=== PATIENT | female | born 1990 | race Two or more races ===

== ENCOUNTER 2021-06-20 11:50 | Outpatient (CLI) | payer OTHER ==
[~2021-06-20] VITALS: Ht 172.7 cm; Wt 98.6 kg
[2021-06-20] VITALS (18 sets, daily range): BP systolic 113–152; BP diastolic 61–80
[2021-06-20] MEDS ORDERED: MULTTAB20 PO (12:10)
[2021-06-20] MEDS ORDERED: ACET325C5 PO (12:10)
[2021-06-20] MEDS ORDERED: HOME MED LIST COMPLETE! XX SCH (12:15)
[2021-06-20] MEDS ORDERED: FIORICET TAB PO ONE (12:40)
[2021-06-20] MEDS ORDERED: LR 1,000 ML IV ONE ×2 (12:45→15:25)
[2021-06-20 12:51] LABS: HEMATOCRIT 32.2 % (36.0-47.0); HEMOGLOBIN 10.6 g/dl (12.0-15.5); MEAN CORPUSCULAR HEMOGLOBIN 27.6 pg (27.0-33.0); MEAN CORPUSCULAR HGB CONC 32.9 g/dl (32.0-36.5); MEAN CORPUSCULAR VOLUME 83.9 fl (80.0-96.0); PLATELET COUNT, AUTOMATED 252 10^3/uL (150-450); RED BLOOD COUNT 3.84 10^6/uL (4.00-5.40); WHITE BLOOD COUNT 6.7 10^3/uL (4.0-10.0)
[2021-06-20 13:16] LABS: ALT/SGPT 20 U/L (12-78); BILIRUBIN,TOTAL 0.3 MG/DL (0.2-1.0); CREATININE FOR GFR 0.48 MG/DL (0.55-1.30); GLOMERULAR FILTRATION RATE > 60.0 (>60); LDH LACTATE DEHYDROGENASE 127 U/L (84-246)
[2021-06-20 13:38] LABS: TOTAL PROTEIN,RANDOM URINE 21.2 MG/DL (0.0-12.0)
[2021-06-20] MEDS ORDERED: diphenhydrAMINE 50MG/ML VIAL (J1200) IV ONE (15:25)
[2021-06-20] MEDS ORDERED: FIORICET TAB PO PRN (15:30)
[2021-06-20] MEDS: LR 1,000 ML IV SCH ×2 (16:27→22:46)
[2021-06-20] MEDS: FERROUS SULFATE 325MG TAB PO SCH (20:09)
[2021-06-20] MEDS: ASCORBIC ACID 500 MG TAB PO SCH (20:09)
[2021-06-20] MEDS: MAGNESIUM OXIDE 400MG TAB (MAG-OX) PO SCH (20:09)
[2021-06-21 03:21] VITALS: BP 128/60
[2021-06-21 07:49] VITALS: BP 112/57
[2021-06-21] MEDS: LR 1,000 ML IV SCH (07:56)
[2021-06-21] MEDS: MAGNESIUM OXIDE 400MG TAB (MAG-OX) PO SCH (08:49)
[2021-06-21] MEDS ORDERED: ASPIRIN 81MG ENTERIC TABLET PO SCH (09:00)
[2021-06-21] MEDS ORDERED: PRENATAL VITAMINS CHEWABLE TABLET PO SCH (09:00)
[2021-06-21 10:12] VITALS: BP 108/66
[2021-06-21] MEDS: FERROUS SULFATE 325MG TAB PO SCH (10:39)
[2021-06-21] MEDS: ASCORBIC ACID 500 MG TAB PO SCH (10:39)
[2021-06-21 10:55] VITALS: BP 102/57
== END 2021-06-21 11:15 | disposition home or self-care (01) ==
LOC: M LDO 11:50
PROVIDERS: ATTEND Registered Nurse Maternal Newborn
DX: O26.893 Other specified pregnancy related conditions, third trimester (principal); Z3A.33 33 weeks gestation of pregnancy; O41.03X0 Oligohydramnios, third trimester, not applicable or unspecified; O99.343 Other mental disorders complicating pregnancy, third trimester; F41.9 Anxiety disorder, unspecified; F32.9 Major depressive disorder, single episode, unspecified; O99.013 Anemia complicating pregnancy, third trimester; D64.9 Anemia, unspecified; O99.353 Diseases of the nervous system complicating pregnancy, third trimester; G43.119 Migraine with aura, intractable, without status migrainosus; O99.283 Endocrine, nutritional and metabolic diseases complicating pregnancy, third trimester; E28.2 Polycystic ovarian syndrome; Z91.410 Personal history of adult physical and sexual abuse; Z87.51 Personal history of pre-term labor; Z87.59 Personal history of other complications of pregnancy, childbirth and the puerperium
CPT/HCPCS: 36415; 59025; 76815; 76819; 76820; 82247; 82565; 82570; 83615; 84156; 84450; 84460; 84550; 85027; 96360; 96361; G0378; G0463; J1200

== ENCOUNTER 2021-06-30 15:19 | Inpatient (IN) | payer OTHER ==
[2021-06-30] VITALS (14 sets, daily range): BP systolic 134–175; BP diastolic 73–98
[~2021-06-30] VITALS: Ht 170.2 cm; Wt 100.6 kg
[~2021-06-30 15:19] MED LIST: ACET325C5 PO; MULTTAB20 PO
[2021-06-30] MEDS ORDERED: LR 1,000 ML IV ONE (15:25)
[2021-06-30] MEDS ORDERED: PROMETHAZINE INJ 25 MG/ML VIAL (J2550) IV ONE (15:25)
[2021-06-30] MEDS ORDERED: FIORICET TAB PO ONE (15:25)
[2021-06-30] MEDS ORDERED: ACET500P3 PO (16:01)
[2021-06-30 16:24] LABS: CREATININE,RANDOM URINE 26.3 MG/DL; TOTAL PROTEIN,RANDOM URINE 7.2 MG/DL (0.0-12.0)
--- NOTE | 2021-06-30 16:43 | REP ---
INDICATION: Headache, hx of oligo. Comparison study June 21, 2021. COMPARISON: June 21, 2021 TECHNIQUE: Limited transabdominal obstetric sonography. FINDINGS: Scanning through the gravid uterus demonstrates a viable single intrauterine gestation in a cephalic lie. heart rate is recorded at 147 beats per minute. Anterior grade 2 placenta is seen without evidence of previa. Amniotic fluid is subjectively low. HECTOR is low at 2.1 cm (7.9-24.9 cm). Biophysical profile score is 8 out of a possible 8. SD ratio in the umbilical cord artery by Doppler is normal at 2.24. Closed cervical length is 3.9 cm. Umbilical cord is seen at the level of the neck IMPRESSION: Limited Ob sonography. Biophysical profile score 8/8. SD ratio normal. Oligohydramnios. HECTOR 2.1 cm. Question nuchal cord. <Electronically signed by Doimnic Lyons > 06/30/21 0702
[2021-06-30 17:21] LABS: HEMATOCRIT 31.2 % (36.0-47.0); HEMOGLOBIN 10.3 g/dl (12.0-15.5); MEAN CORPUSCULAR HEMOGLOBIN 28.1 pg (27.0-33.0); PLATELET COUNT, AUTOMATED 245 10^3/uL (150-450); RED BLOOD COUNT 3.67 10^6/uL (4.00-5.40); WHITE BLOOD COUNT 7.7 10^3/uL (4.0-10.0)
[2021-06-30 17:39] LABS: ALT/SGPT 20 U/L (12-78); BILIRUBIN,TOTAL 0.2 MG/DL (0.2-1.0); CREATININE FOR GFR 0.52 MG/DL (0.55-1.30); GLOMERULAR FILTRATION RATE > 60.0 (>60); LDH LACTATE DEHYDROGENASE 146 U/L (84-246); URIC ACID 3.5 MG/DL (2.6-6.0)
[2021-06-30] MEDS: LR 1,000 ML IV SCH (17:48)
[2021-06-30 18:08] LABS: APPEARANCE, URINE CLEAR (CLEAR); BACTERIA, URINE AUTO NEGATIVE (NEGATIVE); BILIRUBIN, URINE AUTO NEGATIVE (NEGATIVE); BLOOD, URINE BLOOD NEGATIVE (NEGATIVE); COLOR, URINE STRAW (YELLOW); GLUCOSE, URINE (UA) AUTO NEGATIVE (NEGATIVE); KETONE, URINE AUTO NEGATIVE (NEGATIVE); LEUKOCYTE ESTERASE, URINE AUTO NEGATIVE (NEGATIVE); NITRITE, URINE AUTO NEGATIVE (NEGATIVE); PROTEIN, URINE AUTO NEGATIVE (NEGATIVE); RBC, URINE AUTO 0 /HPF (0-3); SPECIFIC GRAVITY URINE AUTO 1.008 (1.002-1.035); SQUAMOUS EPITHELIAL CELL UR AU 1 /HPF (0-6); UROBILINOGEN, URINE AUTO 0.2 mg/dL (0.0-2.0); WBC, URINE AUTO 0 /HPF (0-3)
[2021-06-30] MEDS: BETAMETHASONE SOLUSPAN 6MG/ML 5ML VIAL (J0702 PER 3MG) IM SCH (19:04)
[2021-07-01] VITALS (26 sets, daily range): BP systolic 126–166; BP diastolic 60–89
--- NOTE | 2021-07-01 02:31 | HPEPDOC ---
Obstetrical History & Physical General Date of Admission Bad table Item Value Date Time Creatinine 0.52 MG/DL L 06/30/21 1654 Glomerular Filtration Rate > 60.0 06/30/21 1654 Uric Acid 3.5 MG/DL 06/30/21 1654 Total Bilirubin 0.2 MG/DL 06/30/21 1654 Aspartate Amino Transf (AST/SGOT) 13 U/L 06/30/21 1654 Alanine Aminotransferase (ALT/SGPT) 20 U/L 06/30/21 1654 Lactate Dehydrogenase 146 U/L 06/30/21 1654 Item Value Date Time White Blood Count 7.7 10^3/uL 06/30/21 1654 Red Blood Count 3.67 10^6/uL L 06/30/21 1654 Hemoglobin 10.3 g/dl L 06/30/21 1654 Hematocrit 31.2 % L 06/30/21 1654 Mean Corpuscular Volume 85.0 fl 06/30/21 1654 Mean Corpuscular Hemoglobin 28.1 pg 06/30/21 1654 Mean Corpuscular Hemoglobin Concent 33.0 g/dl 06/30/21 1654 Red Cell Distribution Width 14.6 % H 06/30/21 1654 Platelet Count 245 10^3/uL 06/30/21 1654 Nucleated Red Blood Cells % (auto) 0.0 % 06/30/214 Jun 30, 2021 at 18:29 NAME: OSVALDO WILLS DATE OF : 1990 AGE: 31 SEX: F REPORT #: [id number] ROOM: [facility] TECHNOLOGIST: EUGENIO DOCTOR: ARMANDO SOL CNM Ordered for Date&Time: 06/30/21 1525 cc: [~ rep ct ivnm] Service Date&Time: 06/30/21 1625 EXAMINATION REQUESTED: BPP W/O NON STRESS TEST REASON FOR PATIENT VISIT: ELEVATED BP REASON FOR EXAM/COMMENT: Headache, hx of oligo INDICATION: Headache, hx of oligo. Comparison study June 21, 2021. COMPARISON: June 21, 2021 TECHNIQUE: Limited transabdominal obstetric sonography. FINDINGS: Scanning through the gravid uterus demonstrates a viable single intrauterine gestation in a cephalic lie. heart rate is recorded at 147 beats per minute. Anterior grade 2 placenta is seen without evidence of previa. Amniotic fluid is subjectively low. HECTOR is low at 2.1 cm (7.9-24.9 cm). Biophysical profile score is 8 out of a possible 8. SD ratio in the umbilical cord artery by Doppler is normal at 2.24. Closed cervical length is 3.9 cm. Umbilical cord is seen at the level of the neck IMPRESSION: Limited Ob sonography. Biophysical profile score 8/8. SD ratio normal. Oligohydramnios. HECTOR 2.1 cm. Question nuchal cord. <Electronically signed by Dominic Lyons > 06/30/21 1639 DD: Arsen Lyons MD 06/30/21 1633 DT: GENA 06/30/21 163 DS: VANNESA 06/30/21163206/30/21 163 [~ rep ct labl] Primary Care Physician: Dante Sam MD History of Present Illness 31 YO A1 LMP 10/03/2020 BY US 7 WEEKS O DAYS SEEN TODAY BECAUSE OF HEADACHE AND ELEVATED BLOOD PRESSURE. WAS SEEN AND ADMITTED 1 WEEK BEFORE FOR SIMILAR ISSUES WORKED UP FOR PRE E NEGATIVE HEADACHE RESOLVED WITH HYDRATION AND MEDICATION. PATIENT HAD OLIGOHYDRAMNIOS HECTOR 3.4 CM 24 HOURS LATER HECTOR 8.6 CM PATIENT DISCHARGED TODAY SIMILAR COMPLAINTS SIMILAR WORK UP OLIGOHYDRAMNIOS 2.1 CM NEGATIVE PRE E AT 35.2 WEEKS. BOTH TIMES EXAMINATION CONFIRMED NEGATIVE LOSS OF FLUID Chief Complaint: Other (HEADACHE AND ELEVATED BLOOD PRESSURE ) Information Provided By: Patient Age: 31 : 4 Term: 0 Pre-term: 2 Abortions: 1 Livin Care Care: Good Care Number of Visits: 3 Dating Final EDC: Aug 03, 2021 Final EDC for Daily Update: Aug 03, 2021 Final EDC by: 1st trimester (US) (12/15/2020) LMP: Oct 05, 2020 1st Trimester Date: Dec 15, 2020 Weeks + Days: 7.0 Estimated Date of Confinement: Aug 03, 2021 EGA at Admission: 35.2 Antepartum Course Diagnos(e)s OLIGOHYDRAMNIOS AT 35.2 WEEKS Height (inches): 68 Pre- weight (lbs.): 184 Admission Weight (lbs.): 217 Change in Weight (lbs.): 33 Past Medical History Past Obstetrical History #1: Past Obstetrical History: Multigravida Date of Delivery: Jul 02, 2007 Gestation: 35 Type of Delivery: Spontaneous Vaginal Del. Sex of Infant: Male Weight of Infant (grams): 2267.96 Complications: Yes (IUFD AT 3 MONTHS ) Past Obstetrical History #2: Past Obstetrical History: Multigravida Date of Delivery: Apr 12, 2018 Gestation: 32 Type of Delivery: Spontaneous Vaginal Del. Sex of : Female Weight of Infant (grams): 1360.77 Complications: Yes (IOL PRE E PPH ) Past Obstetrical History #3: Past Obstetrical History: Multigravida Date of Delivery: Apr 20, 2020 Complications: Yes (SPON AB 8 WEEKS) EXCHANGE SPECIALIST History: Spontaneous (2019 8 WEEKS ) Past Medical History Medical History MIGRAINES WITH AURA Surgical History: Gallbladder (MOTHER HYPERTENSION) Family History Significant Family History: Hypertension Social History Marital Status: Family situation: Spouse/partner home Psychosocial History: No pertinent psych hx * Smoker: non-smoker Alcohol: Denies Drugs: denies Abuse Violence Screening Have you been hit/kicked/slapp: No Have you been sexually assault: No Imunizations Tdap status: current Influenza Status: current Allergies Coded Allergies: No Known Allergies (Unverified , 06/20/21) Medications Scheduled Acetaminophen (Tylenol Extra Strength) 500 Mg Powd.pack, 1,000 MG PO PRN No122/Iron/Folic Acid ( Multi Tablet) 1 Each Tablet, 1 TAB PO DAILY Physical Examination Physical Examination GENERAL: Alert and oriented times three. BREAST: . ABDOMEN: Gravid and non-tender to touch. FETUS: Is vertex (VTX) by sterile vaginal examination (SVE), fetus is vertex (VTX) by Jose. HEART RATE: Regular rate and rhythm. LUNGS: Clear to auscultation (CTA). EXTREMITIES: No edema. No clonus. Deep tendon reflexes (DTRs) + . Other physical findings NORMOCHEPHALIC ATRAUMATIC PEERLA. NECK FULL RANGE MOTION. CHEST CLEAT TO BASES NO WHEEZE NO SOB HEART SOUNDS NORMAL NO MURMUR NO CLICK RUB. ABDOMEN SOFT APPROPRIATE SF HEIGHT BOWEL SOUNDS NORMAL VERTEX CATAGORY 1 STRIP. NO RASHES LESIONS PURITIS NO ARTHRALGIA NO MYALGIA NO JOINT PAIN. NO URGENCY FREQUENCY NO N/V/D/C/F Vital Signs/I&O Vital Signs Date Time Temp Pulse Resp B/P (MAP) Pulse Ox O2 Delivery O2 Flow Rate FiO2 07/01/21 00:52 98.2 59 18 133/68 (89) 06/30/21 17:19 100 Room Air Laboratory Data 24H LABS Laboratory Tests 2 06/30/21 15:44: Urine Color STRAW, Urine Appearance CLEAR, Urine pH 7.0, Urine Specific [place] 1.008, Urine Protein NEGATIVE, Urine Glucose (Auto)(UA) NEGATIVE, Urine Ketones (Auto) NEGATIVE, Urine Blood NEGATIVE, Urine Nitrite NEGATIVE, Urine Bilirubin NEGATIVE, Urine Urobilinogen 0.2, Urine Leukocyte Esterase (Auto) NEGATIVE, Urine WBC (Auto) 0, Urine RBC (Auto) 0, Urine Hyaline Casts (Auto) 0, Urine Bacteria (Auto) NEGATIVE, Urine Squamous Epithelial Cells 1, Urine Sperm (Auto) 06/30/21 15:45: Urine Random Creatinine 26.3, Urine Random Total Protein 7.2 06/30/21 16:54: Nucleated Red Blood Cells % (auto) 0.0, Glomerular Filtration Rate > 60.0, Uric Acid 3.5, Total Bilirubin 0.2, Aspartate Amino Transf (AST/SGOT) 13, Alanine Aminotransferase (ALT/SGPT) 20, Lactate Dehydrogenase 146 06/30/21 19:07: Serology Scanned Report Hepatitis B Testing CBC/BMP Laboratory Tests 06/30/21 16:54 Pertinent Laboratoy Data Blood Type: A+ RBC Antibody Screen: Negative HIV: Negative Hepatitis B: Negative Rapid Plasma Reagin: Nonreactive Rubella: Immune Chlamydia/Gonorrhea: Negative Group B Streptococcus: Unknown Cystic Fibrosis: Negative Anatomy Ultrasound Ultrasound Date: March 06, 2001 Placenta Location: Anterior Normal Anatomy: Yes Placenta Previa: No Other Ultrasounds Information US SUGGESTS RIGHT OVARIAN DERMOID Steroid Therapy Steroid Therapy: Yes Date #1: Jun 30, 2021 Date #2: Jul 01, 2021 Reason ANTICIPATE PRE TERM DELIVERY Vaginal Examination Dilation: 1cm Effacement: 40% Station: -3 Cervical Consistency: Medium Cervical Position: Posterior Presentation: Cephalic presentation Assessment Variability: Moderate Accelerations: Present Decelerations: None Tocometer Contractions: No Assessment/Plan Assessment 31 year-old (G)4 para (P) 2 at 35.2 weeks by 7 -week ultrasound. Presents to Labor and Delivery (L&D) .EVALUATION FOR PRE E OLIGOHYDRAMNIOS Plan Admit and orient. Silk Snapper and consent. Diet: VALERI Group B Streptococcus (GBS) UNKNOWN Labs and intravenous (IV) per unit protocol. Counseled on Pitocin and induction of labor (IOL). Lactated Ringers (LR): Bolus 1000 mL, then at 125 mL/hr. REPEAT US RE HECTOR 24 HOURS Anticipate [normal spontaneous delivery ()]. POSSIBLE IOL C-S as appropriate. Labor and Delivery Counseling REVIEWED PLAN OF CARE WITH PATIENT SINCE SECOND ADMISSION FOR HEADACHE AND OLIGOHYDRAMNIOS WITH TRANSIENT ELEVATED BLOOD PRESSURE PLAN IS TO WORK UP PRE E BPP HYDRATE STEROIDS REPEAT US IN AM WHEN STEROID COMPLETE POSSIBLE IOL PERINATES NOTIFIED TOTAL FACE TO FACE 1 HOUR Dante Sam MD Jul 01, 2021 02:25
[2021-07-01] MEDS: LR 1,000 ML IV SCH ×2 (05:03→13:50)
[2021-07-01] MEDS: BETAMETHASONE SOLUSPAN 6MG/ML 5ML VIAL (J0702 PER 3MG) IM SCH (07:07)
--- NOTE | 2021-07-01 08:45 | REP ---
INDICATION: oligo, patient rehydrate. COMPARISON: 06/30/2021. TECHNIQUE: Real-time sonographic evaluation of gravid uterus performed. FINDINGS: There is a single living intrauterine gestation with estimated gestational age reportedly 35 weeks 2 days, EDC 08/03/2021. position cephalic. Placenta anterior and grade 2 with no previa. heart rate 136 beats per minute. There is oligohydramnios. HECTOR 3.4, normal range 7.8-24.9. SD ratio umbilical artery 2.57, normal range 1.67-3.57. RI 0.61, normal range 0.46-0.72. Cervix is closed with no funneling, the length is 3.1 cm. IMPRESSION: Oligohydramnios. <Electronically signed by Hiram Mc > 07/01/21 0842
[2021-07-01] MEDS ORDERED: TRANEXAMIC ACID INJection 1,000 MG in NS 100 ML IV PRN (09:05)
[2021-07-01] MEDS ORDERED: LIDOCAINE 1% MDV 20ML VIAL INFIL PRN (09:05)
[2021-07-01] MEDS ORDERED: OXYTOCIN DRIP 30 UNITS in IV 1 EA IV PRN ×4 (09:05)
[2021-07-01] MEDS ORDERED: OXYTOCIN INJ 10 UNITS/ML VIAL (J2590) IM PRN (09:05)
[2021-07-01] MEDS ORDERED: CARBOPROST TROMETHAMINE 250 MCG/ML AMP IM PRN (09:05)
[2021-07-01] MEDS ORDERED: METHYLERGONOVINE MALEATE 0.2 MG/ML VIAL (J2210) IM PRN (09:05)
[2021-07-01] MEDS ORDERED: FIORICET TAB PO ONE ×2 (09:20→18:15)
--- NOTE | 2021-07-01 09:58 | IPNPDOC ---
Text Note Date of Service The patient was seen on 07/01/21. NOTE Ingrid Vargas is a 31yo at 35+3 presented [id number] for elevated blood pressure, oligohydramnios. Her preeclampsia workup has been negative so far. Headache yesterday was relieved by one dose of Fioricet. She had an ultrasound yesterday revealing HECTOR of 2.1 and BPP 8/8. Repeat HECTOR this morning was 3.4. Of note, her obstetrical history: she has one vaginal at 35 weeks where the at 3 months of life. She has a [id number] that was born at 32 weeks due to preeclampsia with severe features and is doing well. She received 2 doses of betamethasone, the first at 1900 on 10SEP and then received a second dose at 0700 this morning. She was seen in her room. She feels well overall but does complain of 4-5 headache described as her usual morning headache. Denies visual symptoms, shortness of breath, abdominal/right upper quadrant pain, vaginal bleeding, loss of fluid, contractions. Endorses positive movement. MedHx: migraines with aura SurgHx: cholecystectomy Vitals: bp 143/79, P 63, R 18, T 97.7 Gen: nad, a&o x3 Resp: nonlabored breathing Abd: gravid, nontender, nondistended Ext: bilateral patellar reflexes 2+ monitoring category I. Labs: 10SEP CBC 7.3>10.3/31.2<245 10SEP Cr 0.52 10SEP AST/ALT 13/20 10SEP LDH 146 10SEP Pr/Cr 0.27 Rads: 10SEP radiology ultrasound: 2.1 HECTOR, 8/8 BPP 10SEP radiology ultrasound: 3.4 HECTOR A/P: as above with preeclampsia and oligohydramnios. Per ACOG, delivery for oligohydramnios (isolated,uncomplicated) is recommended at 36+0 to 37+6; for preeclampsia without severe features it is 37+0. Her diagnosis of preeclampsia is based on the documented severe range pressures yesterday which have resolved and were not greater than 4 hours apart. I talked with the patient regarding induction of labor today and the risks/benefits regarding pending development of preeclampsia vs. risks of maturity. Her first dose of betamethasone was 1900 10SEP. Maximal benefit of steroids is 2-7 days after the initial dose. Based on this, the category I tracing and the benign maternal exam the joint decision was made to induce labor once steroid complete if maternal/ status is reassuring. I would aim for 12SEP induction at this time. The plan for today is observation for development of severe features. Fioricet given for headache, will monitor for resolution. Plan for IOL when steroid complete. Yareli Go DO VS,Angie, I+O VS, Angie, I+O Laboratory Tests 06/30/21 16:54 Vital Signs Date Time Temp Pulse Resp B/P (MAP) Pulse Ox O2 Delivery O2 Flow Rate FiO2 07/01/21 07:02 97.7 63 18 143/79 (100) 06/30/21 17:19 100 Room Air YARELI GO DO Jul 01, 2021 09:24
[2021-07-01] MEDS ORDERED: PROCHLORPERAZINE 5 MG TAB (S0183) PO ONE (20:00)
[2021-07-01] MEDS ORDERED: diphenhydrAMINE 25MG CAP PO ONE (20:00)
[2021-07-01] MEDS ORDERED: miSOPROStol 25MCG 1/4 TABLET PO ONE ×2 (20:10→23:05)
[2021-07-01] MEDS ORDERED: CALCIUM GLUCONATE 1,000 MG in D5W MINI-BAG PLUS 100 ML IV PRN (20:15)
[2021-07-01] MEDS ORDERED: MAG Sulf (L&D) 4 GM/100 ML 4 GM in IV 1 EA IV ONE (20:15)
--- NOTE | 2021-07-01 20:37 | IPNPDOC ---
Text Note Date of Service The patient was seen on 07/01/21. NOTE On evening rounds she complained of 8/10 headache, was given 1 tab fioricet which did not improve the headache. I asked if this headache resembled her migraines and she said it felt different, and endorsed seeing sparkles in her vision. She denies shortness of breath, abdominal pain. I talked with her and the sparkles in the vision qualify for preeclampsia with severe features which is an indication for induction at this gestational age. We discussed r/b/a to induction and she is in agreement with induction. A cervical exam was performed and the cervix was closed long high. I discussed magnesium therapy for seizure prevention and she is in agreement. We will try compazine and benadryl for the headache and will start the induction with 25mcg cytotec by mouth. The plan is to recheck cervix in 4-6 hours or as needed and proceed with induction. Continuous monitoring and monitor for signs/symptoms of preeclampsia and magnesium toxicity. L&D consent We will deliver your baby through the vagina with possible assistance of forceps or vacuum device if needed for maternal or indications. Forceps and vacuum are devices that can assist with vaginal delivery when normal pushing efforts cannot achieve delivery on their own or when delivery is needed in an emergency for baby's well-being. Medications may be required to induce or augment (help) your labor in order to achieve a vaginal delivery. An episiotomy may be required to help your baby to delivery vaginally. You may also require repair of any lacerations or tears of your vagina or vulva that are caused by delivery. In some cases, emergencies can occur that require an emergency section delivery so quickly that there may not be enough time to stop and complete cons ent forms for section. Understand that if this occurs, your providers will discuss the need for a section with you before they proceed with surgery. section is the delivery of your baby through an incision in your abdomen. In some situations, section may be safer to mom and baby than continuing labor and is only performed when clinically indicated. Risks of vaginal delivery include but are not limited to: Bleeding, infection, injury to the vagina, pelvic structures, injury to baby, damage to the uterus, reactions to anesthesia, uterine rupture, risk of hysterectomy for life threatening bleeding, or . Medications used to induce or augment labor may increase your risk for infection, uterine tachysystole, uterine rupture, heart rate abnormalities, need for emergency delivery or possible hysterectomy, and hemorrhage. Additional risks for use of forceps and vacuum include: increased risk of perineal and vaginal lacerations, risk of urinary or bowel incontinence, increased risk of injury to baby with bruising, scratches, hematomas on the head, or intracranial bleeding. Yareli Go DO VS,Angie, I+O VS, Angie, I+O Vital Signs Date Time Temp Pulse Resp B/P (MAP) Pulse Ox O2 Delivery O2 Flow Rate FiO2 07/01/21 18:51 20 07/01/21 17:44 97.8 76 132/76 (94) 98 Room Air YARELI GO DO Jul 01, 2021 20:26
[2021-07-01] MEDS: MAG Sulf (OBGYN) 20GM/500ML 20,000 MG in IV 1 EA IV SCH (21:30)
[2021-07-02] VITALS (53 sets, daily range): BP systolic 122–175; BP diastolic 60–103
[2021-07-02] MEDS: LR 1,000 ML IV SCH ×4 (00:16→23:51)
[2021-07-02] MEDS ORDERED: miSOPROStol 25MCG 1/4 TABLET PO ONE (04:40)
[2021-07-02] MEDS: MAG Sulf (OBGYN) 20GM/500ML 20,000 MG in IV 1 EA IV SCH ×2 (06:41→23:53)
--- NOTE | 2021-07-02 07:27 | IPNPDOC ---
Text Note Date of Service The patient was seen on 07/02/21. NOTE Patient seen about 0500 this morning. She has received 3 doses of 25mcg PO cytotec, the last dose around 0430. Per nursing she is 1cm dilated. Her headache was relieved with compazine/benadryl and has not returned. She denies visual disturbances, shortness of breath, abdominal pain. Her spouse requested a note for his command which was provided. vitals reviewed and within normal limits. a&o x3 nonlabored breathing abd nontender, gravid 2+ bilateral patellar reflexes largely category I tracing overnight contraction every 7 minutes currently urine output adequate hourly No signs of magnesium toxicity. Plan to continue induction, she will be steroid complete as of [id number]. Can consider burgos bulb at next exam. She will need 24-hours magnesium. Yareli Go DO VS,Angie, I+O VS, [place], I+O Vital Signs Date Time Temp Pulse Resp B/P (MAP) Pulse Ox O2 Delivery O2 Flow Rate FiO2 07/02/21 06:30 98.9 56 18 140/81 (100) 07/01/21 17:44 98 Room Air I&O- Last 24 Hours up to 6 AM 07/02/21 06:00 Intake Total 2246 ml Output Total 1370 ml Balance 876 ml YARELI GO DO Jul 02, 2021 07:27
[2021-07-02] MEDS ORDERED: OXYTOCIN DRIP 30 UNITS in IV 1 EA IV SCH (08:50)
--- NOTE | 2021-07-02 08:53 | IPNPDOC ---
Text Note Date of Service The patient was seen on 07/02/21. NOTE Ms. Cleveland Vargas is a 31 yo (one child at 3 months of age) at 35+4 weeks gestation who is undergoing an IOL for pre eclampsia with severe features (headaches/scotomata, BPs) in the setting of persistent oligohydramnios. She is receiving IV magnesium for seizure prophylaxis. IOL process was started with PO cytotec and she has received 3 doses. In the room Ingrid reports feeling well. Her headache and visual changes have improved. She reports intermittent contractions. Chaperoned by RN Cervix: /-2. Soft. FHR tracing - Cat I with moderate variability, +accels, no decels. Ctx intermittent UO - appropriate No signs of mag toxicity at this time. BPs stable. We discussed pitocin for labor induction and Ingrid agrees to proceed. Plan will be to start pitocin now. Epidural if and when desired. All patient questions answered. Adriel VS,Angie, I+O VS, Angie, I+O Vital Signs Date Time Temp Pulse Resp B/P (MAP) Pulse Ox O2 Delivery O2 Flow Rate FiO2 07/02/21 07:24 98.1 50 18 139/77 (97) 07/01/21 17:44 98 Room Air I&O- Last 24 Hours up to 6 AM 07/02/21 05:59 Intake Total 2246 ml Output Total 1370 ml Balance 876 ml ZION RUVALCABA DO Jul 02, 2021 08:53
[2021-07-02] MEDS: PRENATAL VITAMINS CHEWABLE TABLET PO SCH (09:00)
[2021-07-02 09:41] LABS: HEMATOCRIT 30.8 % (36.0-47.0); MEAN CORPUSCULAR HEMOGLOBIN 27.7 pg (27.0-33.0); MEAN CORPUSCULAR HGB CONC 32.5 g/dl (32.0-36.5); MEAN CORPUSCULAR VOLUME 85.3 fl (80.0-96.0); PLATELET COUNT, AUTOMATED 244 10^3/uL (150-450); RED BLOOD COUNT 3.61 10^6/uL (4.00-5.40); WHITE BLOOD COUNT 8.8 10^3/uL (4.0-10.0)
[2021-07-02] MEDS ORDERED: FENTANYL 2MCG/ML ROPIVACAINE 0.2% IN 0.9% NACL 100ML IVBAG As Ordered ONE (10:36)
[2021-07-02] MEDS ORDERED: EPIDURAL COMMENT XX SCH (11:40)
[2021-07-02] MEDS ORDERED: REFRIGERATOR IV KEYS XX PRN (11:40)
[2021-07-02] MEDS ORDERED: LACTATED RINGER'S 1000 ML IV PRN (11:40)
[2021-07-02] MEDS ORDERED: ONDANSETRON 4MG/2ML VIAL IV PRN ×2 (11:40→16:05)
[2021-07-02] MEDS ORDERED: EPIDURAL/PCA KEYS XX PRN (11:40)
[2021-07-02] MEDS ORDERED: NALOXONE INJ 0.4MG/1ML VIAL (J2310 PER 1MG) IV PRN (11:40)
[2021-07-02] MEDS ORDERED: diphenhydrAMINE 50MG/ML VIAL (J1200) IV PRN (11:40)
[2021-07-02] MEDS ORDERED: FENTANYL/ROPIVACAINE/NACL BAG 100 ML EPIDURAL SCH (11:40)
[2021-07-02] MEDS ORDERED: ePHEDrine SULFATE 25 MG/5 ML(5MG/ML) SYRINGE IV PRN (11:40)
--- NOTE | 2021-07-02 12:09 | IPNPDOC ---
Text Note Date of Service The patient was seen on 07/02/21. NOTE Ingrid just received an epidural and is now comfortable. Cervix: 4/60/-2. AROM performed productive of a small amount of bloody fluid. FHR tracing - Cat I with moderate variability, +accels, no decels. Ctx becoming more regular. Pitocin at 6mU. Will continue to titrate to effect. All questions answered. Adriel VSAngie, I+O VSAngie, I+O Laboratory Tests 07/02/21 09:29 Vital Signs Date Time Temp Pulse Resp B/P (MAP) Pulse Ox O2 Delivery O2 Flow Rate FiO2 07/02/21 11:22 70 135/74 (94) 07/02/21 11:09 97.7 18 07/01/21 17:44 98 Room Air I&O- Last 24 Hours up to 6 AM 07/02/21 06:00 Intake Total 2246 ml Output Total 1370 ml Balance 876 ml ZION RUVALCABA DO Jul 02, 2021 12:09
[2021-07-02] MEDS ORDERED: DOCUSATE SODIUM 100MG CAPSULE PO PRN (16:05)
[2021-07-02] MEDS ORDERED: ACETAMINOPHEN TAB 650MG DOSE (2X325MG) PO PRN (16:05)
[2021-07-02] MEDS ORDERED: IBUPROFEN 600MG TAB PO PRN (16:05)
[2021-07-02] MEDS ORDERED: RHOGAM 300 MCG (1500 IU) INJ (J2790) IM SCH (16:05)
[2021-07-02] MEDS ORDERED: DIBUCAINE 1% OINTMENT 30GM TOP PRN (16:05)
[2021-07-02] MEDS ORDERED: MEASLES,MUMPS,RUBELLA VACCINE INJ (MMR-II) (90707) SC SCH (16:05)
--- NOTE | 2021-07-02 16:22 | DNPDOC ---
[facility] Delivery Note Delivery Note DATE OF DELIVERY: 02Jul2021 at ~1545 PREDELIVERY DIAGNOSIS: 35+4 weeks gestation, pre eclampsia with severe features, oligohydramnios POST DELIVERY DIAGNOSIS: Delivered. PROCEDURE: Spontaneous vaginal delivery ETHANOL QUALITY LEADER: Dr. Morel ANESTHESIA: Neuraxial (epidural) ESTIMATED BLOOD LOSS: 150 ml FINDINGS: 5 pound 13 ounce female , Score 9/9, loose nuchal cord X1 DELIVERY SUMMARY: Ingrid progressed well on pitocin into active phase. She started feeling an urge to push and I was called to the room. The bed was broken down and she was prepped for delivery. With excellent effort over about only 2 minutes of pushing her infant delivered. Presentation was COSTA with restitution to ROT. There was a loose nuchal cord that was delivered through and reduced manually on the field. The left anterior shoulder delivered with gentle traction followed easily by the remainder of the body. The infant was dried and stimulated on the field and a bulb suction was used. The infant was placed on the maternal abdomen and cried vigorously. The three vessel umbilical cord was then clamped and cut by me. Third stage was completed with gentle traction on on the cord and it was productive of an intact placenta. The uterus was firmed with massage and pitocin was administered IV bolus. Inspection of the cervix, vagina, labia, and perineum revealed no lacerations. The fundus was palpated again and was firm. Sponge, instrument, and needle counts were correct X2. Mother and infant stable when I left the room. DO JORDON Mayberry CHRISTOPHER J. DO Jul 02, 2021 16:22
[2021-07-02] MEDS: IBUPROFEN 800 MG TAB PO PRN (23:04)
[2021-07-02] MEDS: ACETAMINOPHEN 500 MG TAB PO PRN (23:52)
[2021-07-03] VITALS (18 sets, daily range): BP systolic 121–157; BP diastolic 65–89
--- NOTE | 2021-07-03 03:28 | IPNPDOC ---
Progress Note Date of Service: Jul 03, 2021 Progress Note Ingrid is doing well. Denies headaches, RUQ pain, or visual changes. Vitals - BPs normal to mildly elevated, afebrile, non tachycardic UO - excellent Pending AM labs. Continue IV magnesium drip for 24 hours . Adriel VS, I&O, 24H, Angie Vital Signs/I&O Vital Signs Date Time Temp Pulse Resp B/P (MAP) Pulse Ox O2 Delivery O2 Flow Rate FiO2 07/02/21 23:48 50 17 122/60 (80) 07/02/21 23:04 97.7 07/01/21 17:44 98 Room Air I&O- Last 24 Hours up to 6 AM 07/03/21 05:59 Intake Total 2300 ml Output Total 5450 ml Balance -3150 ml Laboratory Data 24H LABS Laboratory Tests 2 07/02/21 09:29: Nucleated Red Blood Cells % (auto) 0.0 CBC/BMP Laboratory Tests 07/02/21 09:29 ZION RUVALCABA DO Jul 03, 2021 03:28
[2021-07-03 07:45] LABS: HEMATOCRIT 29.8 % (36.0-47.0); HEMOGLOBIN 9.7 g/dl (12.0-15.5); MEAN CORPUSCULAR HEMOGLOBIN 27.6 pg (27.0-33.0); MEAN CORPUSCULAR HGB CONC 32.6 g/dl (32.0-36.5); MEAN CORPUSCULAR VOLUME 84.7 fl (80.0-96.0); PLATELET COUNT, AUTOMATED 223 10^3/uL (150-450); RED BLOOD COUNT 3.52 10^6/uL (4.00-5.40); WHITE BLOOD COUNT 9.7 10^3/uL (4.0-10.0)
[2021-07-03] MEDS: PRENATAL VITAMINS CHEWABLE TABLET PO SCH (08:16)
[2021-07-03] MEDS ORDERED: INFLUENZA QUADRIVALENT PF VACCINE 0.5ML SYRINGE IM ONE (09:00)
[2021-07-03] MEDS: LR 1,000 ML IV SCH (12:55)
[2021-07-03] MEDS: IBUPROFEN 800 MG TAB PO PRN (12:59)
[2021-07-03] MEDS: ACETAMINOPHEN 500 MG TAB PO PRN ×2 (12:59→19:22)
[2021-07-03] MEDS: SLF 3 ML SYR IV SCH (22:02)
[2021-07-04 01:58] VITALS: BP 143/72
--- NOTE | 2021-07-04 04:30 | IPNPDOC ---
Progress Note Date of Service: Jul 04, 2021 Day#: 2 Progress Note SUBJECT: Ms. Cleveland Vargas is a 24yo PPD2 after a vaginal delivery, 5 pound 13 ounce female infant, Score 9/9. She was induced late pre-term for pre-eclampsia with severe features. She has had 24 hours of magnesium that was discontinued [id number] at approx 1600. She has been ambulating, voiding spontaneously without issue and tolerating regular diet. Breast feeding without issue. Reports lochia is less than a normal period. Patient is ambulating well. Reports some cramping with . Denies any pain. Voiding and passing flatus without difficulty. Denied n/v/d, cp, sob, stout, visual changes, abd pain, f/c, urinary sx. OBJECTIVE: VITAL SIGNS: Within normal limits, afebrile. Alert and oriented times three. No increased wob. Heart rate: Non-tachycardic. Abdomen: Fundus firm at U-2. Soft, NTTP. [Minimal] lochia per pt DTRs 2+, no conus, neg homans ASSESSMENT: Ms. Cleveland Vargas is a 24yo PPD2 after a vaginal delivery, 5 pound 13 ounce female , Score 9/9. She was induced late pre-term for pre-eclampsia with severe features. She has had 24 hours of ma gnesium that was discontinued [id number] at approx 1600. Her pre-eclampsia labs have been normal. Her urine output is good. Her blood pressures have been mild range, but she is not meeting criteria for oral antihypertensives. She denied symptoms of pre-eclampsia. PLAN: 1. Discharge to home today. 2. Tylenol and Motrin for pain. 3. Encourage breast feeding and ambulation. 4. Plans on the mini pill for contraception. 5. Routine PP visit in 72h and 7d (for blood pressure checks) and at 6 weeks in clinic. 6. Discussed return precautions at length (to include symptoms of pre-eclampsia) and activity limitations (pelvic rest). VS, I&O, 24H, Fishbone Vital Signs/I&O Vital Signs Date Time Temp Pulse Resp B/P (MAP) Pulse Ox O2 Delivery O2 Flow Rate FiO2 07/04/21 01:58 98.9 57 15 143/72 (95) 97 Room Air I&O- Last 24 Hours up to 6 AM 07/04/21 06:00 Intake Total 1629 ml Output Total 3700 ml Balance -2071 ml Laboratory Data 24H LABS Laboratory Tests 2 07/03/21 07:31: Nucleated Red Blood Cells % (auto) 0.0 CBC/BMP Laboratory Tests 07/03/21 07:31 DEVON MANNING DO Jul 04, 2021 04:30
[2021-07-04] MEDS: IBUPROFEN 800 MG TAB PO PRN ×2 (04:54→18:10)
[2021-07-04] MEDS: SLF 3 ML SYR IV SCH ×3 (06:46→22:00)
[2021-07-04] MEDS: PRENATAL VITAMINS CHEWABLE TABLET PO SCH (07:36)
[2021-07-04 14:00] VITALS: BP 136/77
[2021-07-04 17:52] VITALS: BP 139/83
[2021-07-04 22:00] VITALS: BP 135/65
[2021-07-05] VITALS (7 sets, daily range): BP systolic 118–179; BP diastolic 64–93
[2021-07-05] MEDS: IBUPROFEN 800 MG TAB PO PRN ×2 (02:05→09:58)
[2021-07-05] MEDS ORDERED: NIFEdipine 10 MG CAP PO ONE (04:00)
[2021-07-05] MEDS: SLF 3 ML SYR IV SCH (06:31)
[2021-07-05] MEDS ORDERED: NIFEdipine 30 MG XL TAB PO STA (06:36)
--- NOTE | 2021-07-05 07:14 | OBDS ---
[facility] Obstetrical Discharge Sum. Obstetrical Discharge Summary Date: Jul 05, 2021 Time: 07:09 A/P, Post Course List any complications Ms. Cleveland Vargas is a 24yo PPD3 after a vaginal delivery, 5 pound 13 ounce female infant, Score 9/9. She was induced late pre-term for pre- eclampsia with severe features. She had 24 hours of magnesium that was discontinued [id number] at approx 1600. overnight, i was notified at 33a am that she was having severe range BP, Upon vital review patient has severe range BP 170'S systolic for 90 min before i was notified. she received a dose of 10mg procardai and that brought her BP to mild range. this morning, she was started on 3omg of adalat daily. She has been ambulating, voiding spontaneously without issue and tolerating reg ular diet. Breast feeding without issue. Reports lochia is less than a normal period. Patient is ambulating well. Reports some cramping with . Denies any pain. Voiding and passing flatus without difficulty. Denied n/v/d, cp, sob, stout, visual changes, abd pain, f/c, urinary sx. OBJECTIVE: VITAL SIGNS: Within normal limits, afebrile. Alert and oriented times three. No increased wob. Heart rate: Non-tachycardic. Abdomen: Fundus firm at U-2. Soft, NTTP. [Minimal] lochia per pt DTRs 2+, no conus, neg homans Plan 1. Discharge to home today. 2. Tylenol and Motrin for pain. 3. Encourage breast feeding and ambulation. 4. Plans on the mini pill for contraception. 5. Routine PP visit in 1 day and 7d (for blood pressure checks) and at 6 weeks in clinic. 6. Discussed return precautions at length (to include symptoms of pre-eclampsia) and activity limitations (pelvic rest). ALISA SABA MD Jul 05, 2021 07:12
[2021-07-05] MEDS ORDERED: NIFE1TAB52 PO (07:17)
[2021-07-05] MEDS ORDERED: NIFEdipine 30 MG XL TAB PO SCH (09:00)
[2021-07-05] MEDS: PRENATAL VITAMINS CHEWABLE TABLET PO SCH (09:58)
== END 2021-07-05 10:45 | disposition home or self-care (01) | DRG 806 ==
LOC: M LDO 15:19 → M LDI 18:29 → M OBS 07-03 17:40
PROVIDERS: ADMIT Obstetrics & Gynecology; ATTEND Obstetrics & Gynecology
PROC: 10E0XZZ Delivery of Products of Conception, External Approach (ICD-10-PCS; principal; 2021-07-02)
PROC: 10907ZC Drainage of Amniotic Fluid, Therapeutic from Products of Conception, Via Natural or Artificial Opening (ICD-10-PCS; 2021-07-02)
PROC: 3E0P7GC Introduction of Other Therapeutic Substance into Female Reproductive, Via Natural or Artificial Opening (ICD-10-PCS; 2021-07-02)
DX: O14.14 Severe pre-eclampsia complicating childbirth (principal); Z37.0 Single live birth; O41.03X0 Oligohydramnios, third trimester, not applicable or unspecified; Z3A.35 35 weeks gestation of pregnancy; O69.81X0 Labor and delivery complicated by cord around neck, without compression, not applicable or unspecified

== ENCOUNTER 2022-06-12 06:16 | Day surgery (SDC) | payer OTHER ==
[~2022-06-12] VITALS: Ht 172.7 cm; Wt 89.7 kg
[~2022-06-12 06:16] MED LIST changes: +ACET500P3 PO; +NIFE1TAB52 PO
[2022-06-12] MEDS ORDERED: SODIUM CHLORIDE 0.9% 1000ML IV ONE (06:20)
[2022-06-12] MEDS ORDERED: ACETAMINOPHEN 650 MG SUPP PR ONE (06:25)
[2022-06-12] MEDS ORDERED: NS 1,000 ML IV SCH (06:25)
[2022-06-12] MEDS ORDERED: LR 1,000 ML IV SCH ×2 (06:45→09:55)
[2022-06-12] MEDS ORDERED: BUPIVACAINE HCL 0.5% 30ML VIAL As Ordered ONE (06:46)
[2022-06-12] MEDS ORDERED: ACETAMINOPHEN 650 MG SUPP As Ordered ONE (06:46)
[2022-06-12] MEDS ORDERED: MIDAZOLAM INJ 2MG/2ML VIAL (J2250 PER 1MG) As Ordered ONE (07:10)
[2022-06-12] MEDS ORDERED: fentaNYL 100 MCG/2 ML INJECTION As Ordered ONE (07:10)
[2022-06-12 07:11] LABS: HEMATOCRIT 38.4 % (36.0-47.0); HEMOGLOBIN 12.6 g/dl (12.0-15.5); MEAN CORPUSCULAR HEMOGLOBIN 27.1 pg (27.0-33.0); MEAN CORPUSCULAR HGB CONC 32.8 g/dl (32.0-36.5); MEAN CORPUSCULAR VOLUME 82.6 fl (80.0-96.0); PLATELET COUNT, AUTOMATED 308 10^3/uL (150-450); RED BLOOD COUNT 4.65 10^6/uL (4.00-5.40); WHITE BLOOD COUNT 8.5 10^3/uL (4.0-10.0)
[2022-06-12] MEDS ORDERED: ROCURONIUM BROMIDE 50 MG/5 ML VIAL As Ordered ONE (07:11)
[2022-06-12] MEDS ORDERED: LIDOCAINE 2% 100MG/5ML SDV (FOR ANES.) As Ordered ONE (07:12)
[2022-06-12] MEDS ORDERED: propofoL 200 MG/20 ML VIAL As Ordered ONE ×2 (07:13→09:44)
[2022-06-12] MEDS ORDERED: dexameTHASONE 4 MG/ML 1ML VIAL (J1100 PER 1MG) As Ordered ONE (07:15)
[2022-06-12] MEDS ORDERED: SUGAMMADEX SODIUM 500 MG/5 ML VIAL (BRIDION) As Ordered ONE (07:16)
[2022-06-12] MEDS ORDERED: METHYLENE BLUE 0.5% (5MG/ML) 10 ML AMP (PROVAYBLUE) As Ordered ONE (07:47)
[2022-06-12 07:56] LABS: BLOOD UREA NITROGEN 9 MG/DL (7-18); CARBON DIOXIDE LEVEL 24 MEQ/L (21-32); CHLORIDE LEVEL 108 MEQ/L (98-107); CREATININE FOR GFR 0.62 MG/DL (0.55-1.30); GLOMERULAR FILTRATION RATE > 60.0 (>60); GLUCOSE, FASTING 96 MG/DL (70-100); HCG, SERUM QUANTITATIVE < 1.0 MIU/ML; SODIUM LEVEL 137 MEQ/L (136-145)
[2022-06-12] MEDS ORDERED: ONDANSETRON 4MG 2ML VIAL As Ordered ONE (08:14)
[2022-06-12] MEDS ORDERED: KETOROLAC 60MG 2ML VIAL As Ordered ONE (08:21)
[2022-06-12] MEDS ORDERED: HYDROmorphone HCL 2MG/ML 1ML VIAL As Ordered ONE (08:43)
[2022-06-12] MEDS ORDERED: oxyCODONE 5MG TAB PO PRN (09:55)
[2022-06-12] MEDS ORDERED: ONDANSETRON 4MG 2ML VIAL IV PRN (09:55)
[2022-06-12] MEDS ORDERED: HYDROMORPHONE HCL 0.5 MG/ 0.5 ML SYRINGE (J1170 PER 1) IV PRN (09:55)
[2022-06-12] MEDS ORDERED: fentaNYL 100 MCG/2 ML INJECTION IV PRN (09:55)
[2022-06-12] MEDS ORDERED: METOCLOPRAMIDE INJ 10MG/2ML VIAL (J2765 PER 1) IV PRN (09:55)
[2022-06-12 11:01] VITALS: BP 139/81
[2022-06-12] MEDS ORDERED: KETOROLAC 30 MG/ML 1ML VIAL IV SCH (16:00)
== END 2022-06-12 12:11 | disposition home or self-care (01) ==
LOC: M SDC 06:16
PROVIDERS: ATTEND Obstetrics & Gynecology
DX: D27.0 Benign neoplasm of right ovary (principal); N83.11 Corpus luteum cyst of right ovary; N83.01 Follicular cyst of right ovary
CPT/HCPCS: 36415; 58661; 80048; 84443; 84702; 85027; 88305; J1100; J1170; J1885; J2250; J2405; J2765; J3010

== ENCOUNTER 2023-03-29 16:53 | Emergency (ER) | payer OTHER ==
[~2023-03-29] VITALS: Ht 172.7 cm; Wt 93.9 kg
[2023-03-29 18:14] LABS: BASO # 0.1 10^3/uL (0.0-0.2); BASO % 0.9 % (0.0-1.0); EOS # 0.5 10^3/uL (0.0-0.5); EOS % 4.9 % (0.0-3.0); HEMATOCRIT 39.9 % (36.0-47.0); HEMOGLOBIN 13.4 g/dl (12.0-15.5); LYMPH # 4.4 10^3/uL (1.5-5.0); LYMPH % 42.6 % (24.0-44.0); MEAN CORPUSCULAR HEMOGLOBIN 27.5 pg (27.0-33.0); MEAN CORPUSCULAR HGB CONC 33.6 g/dl (32.0-36.5); MEAN CORPUSCULAR VOLUME 81.8 fl (80.0-96.0); MONO # 0.6 10^3/uL (0.0-0.8); MONO % 6.2 % (2.0-8.0); NEUTROPHILS # 4.7 10^3/uL (1.5-8.5); NEUTROPHILS % 45.2 % (36.0-66.0); PLATELET COUNT, AUTOMATED 327 10^3/uL (150-450); RED BLOOD COUNT 4.88 10^6/uL (4.00-5.40); WHITE BLOOD COUNT 10.3 10^3/uL (4.0-10.0)
[2023-03-29 18:36] LABS: LIPASE 42 U/L (12-53)
[2023-03-29 18:38] LABS: ALBUMIN 4.2 G/DL (3.2-5.2); ALKALINE PHOSPHATASE 80 U/L (46-116); ALT/SGPT 30 U/L (7.0-40); AST/SGOT 13 U/L (<34); BILIRUBIN,DIRECT < 0.1 MG/DL (<0.4); BILIRUBIN,TOTAL 0.3 MG/DL (0.3-1.2); BLOOD UREA NITROGEN 11 MG/DL (9-23); CALCIUM LEVEL 9.6 MG/DL (8.5-10.1); CARBON DIOXIDE LEVEL 26 MMOL/L (20-31); CHLORIDE LEVEL 105 MMOL/L (98-107); CREATININE FOR GFR 0.61 MG/DL (0.55-1.30); GLOMERULAR FILTRATION RATE > 60.0 (>60); GLUCOSE, FASTING 87 MG/DL (60-100); POTASSIUM SERUM 4.2 MMOL/L (3.5-5.1); SODIUM LEVEL 138 MMOL/L (136-145); TOTAL PROTEIN 7.8 G/DL (5.7-8.2)
[2023-03-29 18:40] LABS: HCG, SERUM QUALITATIVE NEGATIVE (NEGATIVE)
[2023-03-29] MEDS ORDERED: ONDANSETRON 4MG ORAL DISINTEGRATING TAB PO ONE (20:45)
[2023-03-29] MEDS ORDERED: CYPR4TA PO (20:57)
[2023-03-29] MEDS ORDERED: SERT25TA21 PO (20:57)
[2023-03-29] MEDS ORDERED: IBUP-1022 PO (21:47)
[2023-03-29 21:53] VITALS: BP 119/74; TEMP 98.7; O2SAT 99
== END 2023-03-29 21:55 | disposition home or self-care (01) ==
LOC: M ED 16:53
DX: R10.9 Unspecified abdominal pain (principal); Z79.899 Other long term (current) drug therapy

== ENCOUNTER 2023-11-02 14:07 | Emergency (ER) | payer OTHER ==
[~2023-11-02] VITALS: Ht 172.7 cm; Wt 92.7 kg
[~2023-11-02 14:07] MED LIST changes: +CYPR4TA PO; +IBUP-1022 PO; +SERT25TA21 PO
[2023-11-02 15:38] LABS: BASO # 0.1 10^3/uL (0.0-0.2); BASO % 0.6 % (0.0-1.0); EOS # 0.2 10^3/uL (0.0-0.5); EOS % 2.7 % (0.0-3.0); HEMATOCRIT 38.4 % (36.0-47.0); HEMOGLOBIN 12.7 g/dl (12.0-15.5); LYMPH # 3.1 10^3/uL (1.5-5.0); LYMPH % 39.4 % (24.0-44.0); MEAN CORPUSCULAR HEMOGLOBIN 27.1 pg (27.0-33.0); MEAN CORPUSCULAR HGB CONC 33.1 g/dl (32.0-36.5); MEAN CORPUSCULAR VOLUME 82.1 fl (80.0-96.0); MONO # 0.5 10^3/uL (0.0-0.8); MONO % 6.7 % (2.0-8.0); NEUTROPHILS % 50.5 % (36.0-66.0); PLATELET COUNT, AUTOMATED 310 10^3/uL (150-450); RED BLOOD COUNT 4.68 10^6/uL (4.00-5.40); WHITE BLOOD COUNT 7.9 10^3/uL (4.0-10.0)
[2023-11-02 15:59] LABS: BLOOD UREA NITROGEN 9 MG/DL (9-23); CALCIUM LEVEL 9.1 MG/DL (8.5-10.1); CARBON DIOXIDE LEVEL 27 MMOL/L (20-31); CHLORIDE LEVEL 107 MMOL/L (98-107); CREATININE FOR GFR 0.58 MG/DL (0.55-1.30); GLOMERULAR FILTRATION RATE > 60.0 (>60); GLUCOSE, FASTING 88 MG/DL (60-100); MAGNESIUM LEVEL 2.2 MG/DL (1.8-2.4); SODIUM LEVEL 136 MMOL/L (136-145)
[2023-11-02 16:02] LABS: HCG, SERUM QUALITATIVE NEGATIVE (NEGATIVE); THYROID STIMULATING HORMONE 1.156 uIU/ML (0.55-4.78)
[2023-11-02] MEDS ORDERED: NS 1,000 ML IV ONE (16:40)
[2023-11-02] MEDS ORDERED: ONDANSETRON 4MG 2ML VIAL IV ONE (16:40)
[2023-11-02] MEDS ORDERED: KETOROLAC 30 MG/ML 1ML VIAL IV ONE (16:40)
[2023-11-02 18:03] LABS: RSV AMPLIFICATION NEGATIVE (NEGATIVE)
[2023-11-02] MEDS ORDERED: SUMA50TA2 PO (18:16)
[2023-11-02 18:32] VITALS: BP 131/73; TEMP 98.5; O2SAT 100
== END 2023-11-02 18:35 | disposition home or self-care (01) ==
LOC: M ED 14:07
DX: R51.9 Headache, unspecified (principal)
CPT/HCPCS: 70450; 72125; 80048; 83735; 84443; 84703; 85025; 87631; 93005; 96374; 96375; 99284; J1885; J2405

== ENCOUNTER → 2023-12-12 | Outpatient (CLI) | payer OTHER ==
[~2023-12-12] MED LIST changes: +PROHANCE 279.3MG/ML 15ML VIAL As Ordered ONE; +PROHANCE 279.3MG/ML 5ML VIAL As Ordered ONE; +SUMA50TA2 PO
== END ==
LOC: M RAD 14:56
PROVIDERS: ATTEND Family Medicine
DX: R20.2 Paresthesia of skin (principal); M54.10 Radiculopathy, site unspecified